=== PATIENT | male | born 1990 | race Caucasian/White ===

== ENCOUNTER 2017-02-12 00:49 | Emergency (ER) | payer OTHER ==
[2017-02-12] MEDS ORDERED: IBUPROFEN 600 MG TAB PO STA (01:24)
--- NOTE | 2017-02-12 01:34 | XR ---
EXAMINATION TYPE: XR wrist complete LT DATE OF EXAM: 02/12/2017 COMPARISON: NONE HISTORY: Pain TECHNIQUE: 4 views FINDINGS: I see no fracture nor dislocation. Carpal bones are intact. Soft tissues appear normal. Sca phoid is intact. IMPRESSION: Negative left wrist exam.
--- NOTE | 2017-02-12 02:00 | ED ---
Upper Extremity HPI - General Chief Complaint: Extremity Injury, Upper Stated Complaint: [facility]-hand injury Time Seen by Provider: 02/12/17 01:12 Source: patient Mode of arrival: ambulatory Limitations: no limitations - History of Present Illness Initial Comments: 26 year-old male patient presents to the emergency department today for evaluation of left wrist pain after experiencing an injury at work. Patient states that he was pulling on a handle of the machine he was working on when the handle snapped back causing his wrist to hyperextend. He states that since then he has had some swelling to the dorsal aspect of the left wrist. He states that he has significant pain when he attempts to move the wrist. He denies any numbness or tingling to the hand or fingers. States he does have full range of motion of the fingers without difficulty. He denies any other injuries.Patient denies any headache, neck pain, back pain, chest pain, shortness of breath, dizziness, weakness, abdominal pain, nausea, vomiting, or difficulties with bowel movements or urination. - Related Data Previous Rx's Medication Instructions Recorded Ibuprofen [Motrin] 600 mg PO Q8HR PRN #30 tab 02/12/17 Allergies Allergy/AdvReac Type Severity Reaction Status Date / Time No Known Allergies Allergy Verified 02/12/17 01:06 Review of Systems ROS Statement: Those systems with pertinent positive or pertinent negative responses have been documented in the HPI. ROS Other: All systems not noted in ROS Statement are negative. Past Medical History Past Medical History: No Reported History History of Any Multi-Drug Resistant Organisms: None Reported Past Surgical History: Orthopedic Surgery Past Psychological History: Anxiety, Depression, PTSD Smoking Status: Current every day smoker Past Alcohol Use History: None Reported Past Drug Use History: None Reported General Exam Limitations: no limitations General appearance: alert, in no apparent distress, other (This is a well- developed, well-nourished adult male patient in no acute distress. Vital signs upon presentation were temperature 98.9F, pulse 78, respirations 18, blood pressure 149/70, pulse ox 98% on room air.) Eye exam: Present: normal appearance, PERRL, EOMI. Absent: scleral icterus, conjunctival injection, periorbital swelling ENT exam: Present: normal exam, normal oropharynx, mucous membranes moist Respiratory exam: Present: normal lung sounds bilaterally. Absent: respiratory distress, wheezes, rales, rhonchi, stridor Cardiovascular Exam: Present: regular rate, normal rhythm, normal heart sounds. Absent: systolic murmur, diastolic murmur, rubs, gallop, clicks Extremities exam: Present: full ROM (Patient does have full flexion of the left wrist and full extension however reports increased pain with both movements), tenderness (And is over the dorsal aspect of the left wrist. No anatomical snuffbox tenderness was noted.), normal capillary refill, other (There is swelling over the dorsal aspect of the left wrist.). Absent: pedal edema, joint swelling, calf tenderness Neurological exam: Present: alert, oriented X3, CN II-XII intact Psychiatric exam: Present: normal affect, normal mood Skin exam: Present: warm, dry, intact, normal color. Absent: rash Course Vital Signs 02/12/17 02/12/17 01:02 02:10 Temperature 99 F 97.1 F L Pulse Rate 78 84 Respiratory 18 16 Rate Blood Pressure 149/70 149/77 O2 Sat by Pulse 98 98 Oximetry Medical Decision Making - Medical Decision Making 26-year-old male patient presented to the emergency department today for evaluation of left wrist pain after an injury at work today. Physical examination did reveal some minor soft tissue swelling over the dorsal aspect of the wrist. Patient did have intact pulses. Neurovascular status was intact. Patient did not have any anatomical snuffbox tenderness. X-ray was negative for any acute fracture or dislocation. Patient was placed in an Lico wrap for comfort and support. He was given ibuprofen here in the department as well as a prescription at discharge for pain control. He is instructed to follow-up with [facility] for any further needs. He is instructed to have repeat x- ray performed in 7-10 days if his symptoms persist. Patient was reporting nasal congestion today and did request a Sudafed prior to discharge, this has been ordered for him. He is instructed to return here immediate for any new, worsening, or concerning symptoms. He verbalizes understanding and agrees with this plan. - Radiology Data Radiology results: report reviewed, image reviewed 4 views of the left wrist are obtained and show no fracture nor dislocation. Carpal bones are intact. Soft tissues appear normal. Scaphoid is intact. Impression by Dr. Yoder shows negative left wrist exam. Disposition Clinical Impression: Wrist sprain Disposition: HOME SELF-CARE Condition: Good Instructions: Wrist Sprain (ED) Additional Instructions: Wear lico wrap for discomfort. Follow up for repeat xray in 7-10 days if pain symptoms persist. Follow-up with [facility] for further evaluation. Return here immediately for any new, worsening, or concerning symptoms. Prescriptions: Ibuprofen [Motrin] 600 mg PO Q8HR PRN #30 tab PRN Reason: Pain Referrals: None,Stated [Primary Care Provider] - 1-2 days Time of Disposition: 01:59
[2017-02-12] MEDS ORDERED: PSEUDOEPHEDRINE 12HR 120 MG TABLET.ER PO STA (02:05)
[2017-02-12 02:12] VITALS: BP 149/77; PULSE 84; RESP 16; TEMP 97.1
== END 2017-02-12 02:15 | disposition home or self-care (01) ==
LOC: EC 00:49
DX: S63.502A Unspecified sprain of left wrist, initial encounter (principal); R09.81 Nasal congestion; F17.200 Nicotine dependence, unspecified, uncomplicated; W23.1XXA Caught, crushed, jammed, or pinched between stationary objects, initial encounter; Y92.69 Other specified industrial and construction area as the place of occurrence of the external cause; Y93.89 Activity, other specified; Y99.0 Civilian activity done for income or pay
CPT/HCPCS: 99283

== ENCOUNTER → 2017-02-19 | Outpatient (CLI) | payer OTHER ==
--- NOTE | 2017-02-19 15:40 | XR ---
EXAMINATION TYPE: XR wrist complete LT DATE OF EXAM: 02/19/2017 COMPARISON: NONE HISTORY: 26-year-old male left wrist sprain one week ago, pain TECHNIQUE: 4 views FINDINGS: The radiocarpal and distal radial ulnar joint as well as the midcarpal compartment appear intact. No acute fracture, subluxation, or dislocation. Prominent dorsal soft tissue swelling at the wrist and c arpus. IMPRESSION: Prominent dorsal soft tissue swelling. No acute osseous abnormality seen.
== END | disposition home or self-care (01) ==
LOC: RADXRMAIN 15:14
PROVIDERS: ATTEND Emergency Medicine
DX: S63.502D Unspecified sprain of left wrist, subsequent encounter (principal); M79.89 Other specified soft tissue disorders

== ENCOUNTER → 2018-04-03 | Outpatient (CLI) | payer OTHER ==
--- NOTE | 2018-04-03 08:42 | US ---
EXAMINATION TYPE: US abdomen complete DATE OF EXAM: 04/03/2018 COMPARISON: NONE CLINICAL HISTORY: B18.2 Chronic viral hepatitis C. EXAM MEASUREMENTS: Liver Length: 17.6 cm Gallbladder Wall: 0.1 cm CBD: 0.1 cm Spleen: 12.4 cm Right Kidney: 10.8x3.8x5.3 cm Left Kidney: 10.9x3.8x4.2 cm Pancreas: wnl Liver: wnl 17-18cm upper limits. Portal venous system prominence is seen. Overall there is a very m ildly heterogenous echotexture. Gallbladder: wnl Evidence for sonographic Jhaveri's sign: No CBD: wnl Spleen: wnl Right Kidney: wnl Left Kidney: wnl Upper IVC: wnl Abd Aorta: wnl The intrahepatic portion of the IVC and proximal abdominal aorta are within normal limits. There is no evidence of cholelithiasis. Common bile duct is unremarkable. The visualized portions of the sheffield creas are homogenous. The spleen is unremarkable. Kidneys are symmetric and free of hydronephrosis. No renal lesions are seen. IMPRESSION: Very mild heterogenous echotexture of the upper limits of normal sized liver. Portal veno us system prominence is seen that could reflect underlying portal venous hypertension. No discrete he patic lesion is seen on today's examination.
== END | disposition home or self-care (01) ==
LOC: RADUSWWP 07:31
PROVIDERS: ATTEND Internal Medicine Gastroenterology
DX: B18.2 Chronic viral hepatitis C (principal)
CPT/HCPCS: 76700

== ENCOUNTER → 2018-05-13 | Outpatient (CLI) | payer OTHER ==
[2018-05-13 16:41] LABS: Partial Thromboplastin Time 36.9 sec (22.0-30.0)
== END | disposition home or self-care (01) ==
LOC: LABWHC1 16:03
PROVIDERS: ATTEND Internal Medicine Gastroenterology
DX: B18.2 Chronic viral hepatitis C (principal)
CPT/HCPCS: 36415; 85610; 85730

== ENCOUNTER → 2018-07-01 | Outpatient (CLI) | payer OTHER ==
[2018-07-01 08:07] LABS: Prothrombin Time 11.1 sec (9.0-12.0)
[2018-07-01 08:22] LABS: HCT 48.9 % (39.0-53.0); HGB 15.4 gm/dL (13.0-17.5); MCH 30.2 pg (25.0-35.0); MCHC 31.6 g/dL (31.0-37.0); MCV 95.5 fL (80.0-100.0); Mean Platelet Volume 6.9; Platelet Count 191 k/uL (150-450); RBC 5.12 m/uL (4.30-5.90); RDW 13.2 % (11.5-15.5); WBC 6.4 k/uL (3.8-10.6)
[2018-07-01 08:59] LABS: Eosinophils # (M) 0.38 k/uL (0-0.7); Lymphocytes # (M) 1.73 k/uL (1.0-4.8); Monocytes # (M) 0.19 k/uL (0-1.0); Neutrophils % (M) 64 %; Nucleated Red Blood Cells 0 /100 WBC (0-0); Total Cells Counted 100
[2018-07-01 17:10] LABS: Albumin/Globulin Ratio 1.85 (1.60-3.17); Anion Gap 8.6 mmol/L (4.00-12.00); Calcium 9.5 mg/dL (8.7-10.3); Carbon Dioxide 26.4 mmol/L (21.6-31.8); Globulin 2.7 g/dL (1.6-3.3); Potassium 3.9 mmol/L (3.5-5.5); Total Bilirubin 1.1 mg/dL (0.3-1.2); Total Protein 7.7 g/dL (6.2-8.2)
[2018-07-02 15:13] LABS: Hepatits C Virus RNA DETECTED (Not detected); Hepatits C Virus RNA, Quant 49 IU/mL (<12); LOG HCV IU/mL 1.69 (<1.08)
== END | disposition home or self-care (01) ==
LOC: LABWHC1 07:19
PROVIDERS: ATTEND Internal Medicine Gastroenterology
DX: B18.2 Chronic viral hepatitis C (principal)
CPT/HCPCS: 36415; 80053; 82105; 85025; 85610; 87522

== ENCOUNTER → 2018-07-22 | Outpatient (CLI) | payer OTHER ==
[2018-07-22 08:37] LABS: INR 1.1 (<1.2); Prothrombin Time 11.4 sec (9.0-12.0)
[2018-07-22 08:53] LABS: HCT 46.7 % (39.0-53.0); HGB 15.3 gm/dL (13.0-17.5); MCHC 32.8 g/dL (31.0-37.0); MCV 94.5 fL (80.0-100.0); Mean Platelet Volume 7.2; Platelet Count 201 k/uL (150-450); RBC 4.94 m/uL (4.30-5.90); RDW 13.3 % (11.5-15.5); WBC 5.9 k/uL (3.8-10.6)
[2018-07-22 11:37] LABS: Eosinophils # (M) 0.53 k/uL (0-0.7); Lymphocytes # (M) 1.59 k/uL (1.0-4.8); Monocytes # (M) 0.35 k/uL (0-1.0); Neutrophils # (M) 3.42 k/uL (1.3-7.7); Neutrophils % (M) 58 %; Nucleated Red Blood Cells 0 /100 WBC (0-0); Total Cells Counted 100
[2018-07-22 16:33] LABS: Albumin 4.7 g/dL (3.80-4.90); Albumin/Globulin Ratio 2.04 (1.60-3.17); Anion Gap 10.3 mmol/L (4.00-12.00); Carbon Dioxide 24.7 mmol/L (21.6-31.8); Globulin 2.3 g/dL (1.6-3.3); Potassium 4.8 mmol/L (3.5-5.5); Total Bilirubin 0.6 mg/dL (0.2-1.2)
[2018-07-23 14:33] LABS: Hepatits C Virus RNA DETECTED (Not detected); Hepatits C Virus RNA, Quant <12 IU/mL (<12); LOG HCV IU/mL <1.08 (<1.08)
== END | disposition home or self-care (01) ==
LOC: LABWHC1 07:38
PROVIDERS: ATTEND Nurse Practitioner Family
DX: B18.2 Chronic viral hepatitis C (principal)
CPT/HCPCS: 36415; 80053; 82105; 85025; 85610; 87522

== ENCOUNTER → 2018-08-21 | Outpatient (CLI) | payer SELFPAY ==
[2018-08-22 14:10] LABS: Hepatits C Virus RNA DETECTED (Not detected); Hepatits C Virus RNA, Quant <12 IU/mL (<12); LOG HCV IU/mL <1.08 (<1.08)
== END | disposition home or self-care (01) ==
LOC: LABWHC1 15:14
PROVIDERS: ATTEND Internal Medicine Gastroenterology
DX: B18.2 Chronic viral hepatitis C (principal)
CPT/HCPCS: 36415; 87522

== ENCOUNTER → 2023-08-05 | Outpatient (CLI) | payer OTHER ==
[2023-08-05 17:24] LABS: ALT 17 U/L (10-49); AST 19 U/L (14-35); Albumin 4.8 g/dL (3.8-4.9); Albumin/Globulin Ratio 1.78 Ratio (1.60-3.17); Alkaline Phosphatase 66 U/L (41-126); BUN/Creat Ratio 14.36 Ratio (12.00-20.00); Blood Urea Nitrogen 15.8 mg/dL (9.0-27.0); Calcium 9.3 mg/dL (8.7-10.3); Chloride 104 mmol/L (96-109); Globulin 2.7 g/dL (1.6-3.3); Glucose 106 mg/dL (70-110); Potassium 4.4 mmol/L (3.5-5.5); Sodium 140 mmol/L (135-145); Total Bilirubin 0.3 mg/dL (0.3-1.2); Total Protein 7.5 g/dL (6.2-8.2)
[2023-08-05 17:29] LABS: Basophils # (A) 0.06 X 10*3/uL (0.00-0.10); Eosinophils # (A) 0.17 X 10*3/uL (0.04-0.35); Eosinophils % (A) 2.7 %; HCT 47.6 % (39.6-50.0); HGB 15.9 g/dL (13.0-17.0); Lymphocytes # (A) 1.16 X 10*3/uL (0.90-5.00); Lymphocytes % (A) 18.5 %; MCH 32.5 pg (27.0-32.0); MCHC 33.4 g/dL (32.0-37.0); MCV 97.3 FL (80.0-97.0); Mean Platelet Volume 9.6 FL (9.5-12.2); Monocytes % (A) 6.4 %; NRBC Per 100 WBC 0 X 10*3/uL (0.00-0.01); Neutrophils # (A) 4.46 X 10*3/uL (1.80-7.70); Neutrophils % (A) 71.1 %; Platelet Count 221 X 10*3/uL (140-440); RBC 4.89 X 10*6/uL (4.40-5.60); WBC 6.27 X 10*3/uL (4.50-10.00)
[2023-08-05 18:16] LABS: Erythrocyte Sedimentation Rate 6 mm/Hr (0-15)
[2023-08-05 18:39] LABS: Gliadin AB IgA, Deaminated Negative (Negative); Gliadin AB IgA, Unit 0.5 U/mL; Gliadin AB IgG, Deaminated Negative (Negative); Gliadin AB IgG, Unit <0.4 U/mL
== END | disposition home or self-care (01) ==
LOC: LABWHC1 09:37
PROVIDERS: ATTEND Internal Medicine Gastroenterology
DX: B18.2 Chronic viral hepatitis C (principal); R19.4 Change in bowel habit
CPT/HCPCS: 36415; 80053; 83516; 85025; 85652; 86140; 87522